=== PATIENT | male | born 1965 | race African-American/Black ===

== ENCOUNTER 2020-06-04 04:47 | Emergency (ER) | payer SELFPAY ==
--- NOTE | 2020-06-04 05:20 | ED.PDOC ---
History of Present Illness - General Chief Complaint: Lower Extremity Injury Stated Complaint: right knee pain Time Seen by Provider: 06/04/20 05:11 Source: patient, RN notes reviewed, Vital Signs reviewed Exam Limitations: no limitations - History of Present Illness Initial Comments: Patient is a 54-year-old male who presents to ED with 1 week history of right knee pain. He denies any recent fall, trauma or injury. States the pain is achy and located in the front of the knee just above the kneecap and is worse with bending and weightbearing. States it has begun to swell the past 2 days. Denies any previous injury or surgeries on that knee. He took ibuprofen this morning for pain and declines any additional medications at this time. Fever, calf pain or any other complaints. Allergies/Adverse Reactions: Allergies NO KNOWN ALLERGY Allergy (Verified 06/04/20 04:59) Home Medications: Ambulatory Orders Acetaminophen W/ Codeine [Tylenol W/ CODEINE #3] 1 ea PO Q6H #30 05/07/15 Cyclobenzaprine HCl [Flexeril] 10 mg PO TID #30 tab 05/07/15 Naproxen [Naprosyn] 500 mg PO BID #30 tab 05/07/15 Tramadol HCl [Ultram] 50 mg PO Q6H #30 tab 05/07/15 Naproxen Sodium [Anaprox Ds] 550 mg PO BID #20 tab 05/14/15 Acetamin W/Cod #3 Tab [Tylenol w/CODEINE #3] 1 ea PO Q6H PRN 20 Days tab 06/04/20 Review of Systems - Review of Systems Constitutional: Denies: chills, fever Respiratory: Denies: cough, short of breath Musculoskeletal: States: joint pain, joint swelling - right knee. Denies: back pain, neck pain All other Systems: Reviewed and Negative Past Medical History (General) - Patient Medical History Hx Seizures: No Hx Stroke: No Hx Dementia: No Hx Asthma: No Hx of COPD: No Hx Cardiac Disorders: No Hx Congestive Heart Failure: No Hx Pacemaker: No Hx Hypertension: No Hx Thyroid Disease: No Hx Diabetes: No Hx Gastroesophageal Reflux: No Hx Renal Disease: No Hx Cancer: No Hx of HIV: No Hx Hepatitis C: No Hx MRSA: No Surgical History: no surgical history - Vaccination History Hx Tetanus, Diphtheria Vaccination: Yes - 2019 Hx Influenza Vaccination: No - Female History Patient : No Family Medical History - Family History Mother Family History: Unknown Physical Exam - Physical Exam General Appearance: Alert, Comfortable, No apparent distress Cardiovascular/Respiratory: regular rate, rhythm, normal breath sounds, no respiratory distress Back: no vertebral tenderness Knee: other - right knee has mild effusion. No erythema or warmth. TTP just superior and later to patella. has FROM w/o difficulty. no calf tenderness. 2+ DP and PT pulses. Skin: normal color, warm/dry Progress - Progress Progress: 06/04/20 05:31 Pt presents with 1 week h/o right knee pain. He has FROM on exam with no warmth, erythema or skin changes. Has mild effusion. Imaging o/w unremarkable. Will treat with RICE and f/u with ortho in 1-2 days for recheck. SRP given. - Results/Orders Results/Orders: RIGHT KNEE RIGHT KNEE, TWO VIEWS, XR. CLINICAL HISTORY: right knee pain/swelling w/o injury COMPARISON: None. TECHNIQUE: AP and lateral right knee. FINDINGS: There is a bipartite patella noted. There is no acute fracture. No dislocation. There is a moderate suprapatellar joint effusion. Joint spaces are otherwise preserved. Bone mineralization is normal. Mild bony hypertrophy along the intercondylar eminence of the proximal tibia. Mild prepatellar edema. No foreign body or subcutaneous emphysema. IMPRESSION: 1. Moderate suprapatellar joint effusion. Mild prepatellar edema. No acute bony finding. 2. Mild osteoarthritis. 3. Bipartite patella. Departure - Departure Clinical Impression: Effusion, right knee Right knee pain Qualifiers: Chronicity: acute Qualified Code(s): M25.561 - Pain in right knee Time of Disposition: 05:33 Disposition: Discharge to Home or Self Care Condition: Good Departure Forms: ED Discharge - Pt. Copy, Patient Portal Self Enrollment Instructions: DI for Leg Pain, Knee Pain (DC) Diet: resume usual diet Activity: increase activity as tolerated Referrals: Santino Farr MD [Active Staff] - 1-5 Days Prescriptions: Acetamin W/Cod #3 Tab [Tylenol w/CODEINE #3] 1 ea PO Q6H PRN 20 Days tab PRN Reason: Pain Home Medications: Ambulatory Orders Acetaminophen W/ Codeine [Tylenol W/ CODEINE #3] 1 ea PO Q6H #30 05/07/15 Cyclobenzaprine HCl [Flexeril] 10 mg PO TID #30 tab 05/07/15 Naproxen [Naprosyn] 500 mg PO BID #30 tab 05/07/15 Tramadol HCl [Ultram] 50 mg PO Q6H #30 tab 05/07/15 Naproxen Sodium [Anaprox Ds] 550 mg PO BID #20 tab 05/14/15 Acetamin W/Cod #3 Tab [Tylenol w/CODEINE #3] 1 ea PO Q6H PRN 20 Days tab 06/04/20
--- NOTE | 2020-06-04 05:28 | RAD ---
RIGHT KNEE, TWO VIEWS, XR. CLINICAL HISTORY: right knee pain/swelling w/o injury COMPARISON: None. TECHNIQUE: AP and lateral right knee. FINDINGS: There is a bipartite patella noted. There is no acute fracture. No dislocation. There is a moderate suprapatellar joint effusion. Joint spaces are otherwise preserved. Bone mineralization is normal. Mild bony hypertrophy along the intercondylar eminence of the proximal tibia. Mild prepatellar edema. No foreign body or subcutaneous emphysema. IMPRESSION: 1. Moderate suprapatellar joint effusion. Mild prepatellar edema. No acute bony finding. 2. Mild osteoarthritis. 3. Bipartite patella. Electronically signed by: Dilia Dunham DO 06/04/2020 5:26 AM [facility]
[2020-06-04 05:47] VITALS: BP 148/89; TEMP 97.9; O2SAT 98
== END 2020-06-04 05:46 | disposition home or self-care (01) ==
LOC: ER 04:47
DX: M25.561 Pain in right knee (principal); M25.461 Effusion, right knee

== ENCOUNTER 2020-08-04 12:52 | Emergency (ER) | payer SELFPAY ==
[2020-08-04] MEDS ORDERED: FLUORESCEIN SODIUM OPHTH STRIP ONE (13:12)
[2020-08-04] MEDS ORDERED: TETRACAINE HCL 0.5% OPHTH SOL 1 DROP ONE (13:12)
--- NOTE | 2020-08-04 13:35 | ED.PDOC ---
History of Present Illness - General Chief Complaint: Eye Problems Stated Complaint: something in eye Time Seen by Provider: 08/04/20 13:25 Source: patient, RN notes reviewed, Vital Signs reviewed Exam Limitations: no limitations - History of Present Illness Initial Comments: Pt states he was grinding metal 4 days ago without safety glasses and feels like something got in his left eye. Denies vision changes. Left eye has been red and irritated. Also reports increased tearing and photophobia. Allergies/Adverse Reactions: Allergies NO KNOWN ALLERGY Allergy (Verified 06/04/20 04:59) Home Medications: Ambulatory Orders Acetaminophen W/ Codeine [Tylenol W/ CODEINE #3] 1 ea PO Q6H #30 05/07/15 Cyclobenzaprine HCl [Flexeril] 10 mg PO TID #30 tab 05/07/15 Naproxen [Naprosyn] 500 mg PO BID #30 tab 05/07/15 Tramadol HCl [Ultram] 50 mg PO Q6H #30 tab 05/07/15 Naproxen Sodium [Anaprox Ds] 550 mg PO BID #20 tab 05/14/15 Acetamin W/Cod #3 Tab [Tylenol w/CODEINE #3] 1 ea PO Q6H PRN 20 Days tab 06/04/20 [id number] [Cortisporin Ophth] 2 drop OPHTH Q4H #1 bttl 08/04/20 Review of Systems - Review of Systems Constitutional: Denies: chills, fever EENTM: States: eye pain, tearing. Denies: blurred vision, double vision Respiratory: Denies: cough, short of breath Cardiology: Denies: edema, palpitations, syncope Gastrointestinal/Abdominal: Denies: abdominal pain, nausea, vomiting Musculoskeletal: Denies: back pain, joint pain All other Systems: Reviewed and Negative Past Medical History (General) - Patient Medical History Hx Seizures: No Hx Stroke: No Hx Dementia: No Hx Asthma: No Hx of COPD: No Hx Cardiac Disorders: No Hx Congestive Heart Failure: No Hx Pacemaker: No Hx Hypertension: No Hx Thyroid Disease: No Hx Diabetes: No Hx Gastroesophageal Reflux: No Hx Renal Disease: No Hx Cancer: No Hx of HIV: No Hx Hepatitis C: No Hx MRSA: No Surgical History: no surgical history - Vaccination History Hx Tetanus, Diphtheria Vaccination: Yes - 2019 Hx Influenza Vaccination: No - Female History Patient : No Family Medical History - Family History Mother Family History: Unknown Physical Exam - Physical Exam General Appearance: Alert, Comfortable, No apparent distress Throat Exam: pharynx normal Neck: non-tender, full range of motion, supple Cardiovascular/Respiratory: normal peripheral pulses, normal breath sounds, no respiratory distress Abdominal Exam: non-tender Neurologic: no motor/sensory deficits, alert, normal mood/affect Skin Exam: normal color, warm/dry - Left eye is injected. Flourescien and Day lamp used with no increased dye uptake. Progress - Progress Progress: 08/04/20 13:35 Pt presents for possible FB left eye after grinding metal several days ago. No definite FB seen at this time. I have d/w pt that I cannot completely r/o FB and will start prophylactic abx and he will f/u with an eye doctor on Thursday for continued evaluation. SRP given. Departure - Departure Clinical Impression: Conjunctivitis, left eye Qualifiers: Conjunctivitis type: acute Acute conjunctivitis type: unspecified Qualified Code(s): H10.32 - Unspecified acute conjunctivitis, left eye Time of Disposition: 13:36 Disposition: Discharge to Home or Self Care Condition: Fair Departure Forms: ED Discharge - Pt. Copy, Patient Portal Self Enrollment Instructions: DI for Eye Pain, Conjunctivitis ([place]) (DC), Foreign Body in Eye (DC) Diet: resume usual diet Activity: increase activity as tolerated Prescriptions: [id number] [Cortisporin Ophth] 2 drop OPHTH Q4H #1 bttl Home Medications: Ambulatory Orders Acetaminophen W/ Codeine [Tylenol W/ CODEINE #3] 1 ea PO Q6H #30 05/07/15 Cyclobenzaprine HCl [Flexeril] 10 mg PO TID #30 tab 05/07/15 Naproxen [Naprosyn] 500 mg PO BID #30 tab 05/07/15 Tramadol HCl [Ultram] 50 mg PO Q6H #30 tab 05/07/15 Naproxen Sodium [Anaprox Ds] 550 mg PO BID #20 tab 05/14/15 Acetamin W/Cod #3 Tab [Tylenol w/CODEINE #3] 1 ea PO Q6H PRN 20 Days tab 06/04/20 [id number] [Cortisporin Ophth] 2 drop OPHTH Q4H #1 bttl 08/04/20 Additional Instructions: You need to follow up with an eye doctor in 2 days for evaluation
[2020-08-04 14:32] VITALS: BP 110/87; TEMP 98; O2SAT 99
== END 2020-08-04 14:18 | disposition home or self-care (01) ==
LOC: ER 12:52
DX: H10.32 Unspecified acute conjunctivitis, left eye (principal)